=== PATIENT | male | born 1955 | race Caucasian/White ===

== ENCOUNTER 2019-03-18 06:01 | Day surgery (SDC) | payer BC ==
[2019-03-18] MEDS ORDERED: ONDANSETRON 4 MG INJ IV (08:00)
[2019-03-18] MEDS ORDERED: LIDOCAINE 2% (SDV) 5 ML INJ (08:49)
[2019-03-18] MEDS ORDERED: PROPOFOL 60 ML (08:58)
== END 2019-03-18 11:54 | disposition home or self-care (01) ==
LOC: GIL 06:01
DX: Z12.11 Encounter for screening for malignant neoplasm of colon (principal); K64.8 Other hemorrhoids; K29.60 Other gastritis without bleeding; E11.9 Type 2 diabetes mellitus without complications; I10 Essential (primary) hypertension; E78.5 Hyperlipidemia, unspecified; Z79.84 Long term (current) use of oral hypoglycemic drugs
CPT/HCPCS: 43239; 82962; 88305; 88312